=== PATIENT | male | born 1960 | race Caucasian/White ===

== ENCOUNTER → 2018-02-03 | Outpatient (CLI) | payer MEDICARE, MEDICAID ==
[~2018-02-03] MED LIST: ASPI-496 PO; ATOR20TA PO; DICL75TA2 PO; DULO60CA55 PO; HYDR25TA6 PO; LISI40TA PO; METO25TA91 PO; NITR0.4T28 SL
[2018-02-03 11:58] LABS: BASOPHILS % (AUTO) 1 % (0-1); EOSINOPHILS # (AUTO) 0.66 x10^3/uL (0-0.4); EOSINOPHILS % (AUTO) 6 % (1-7); LYMPHOCYTES # (AUTO) 2.85 x10^3/uL (1-3.4); LYMPHOCYTES % (AUTO) 25 % (22-44); MD NO; MEAN CORPUSCULAR HEMOGLOBIN 30.2 pg (27.5-34.5); MEAN CORPUSCULAR HGB CONC 33.5 g/dL (33.2-36.2); MEAN CORPUSCULAR VOLUME 90.3 fL (81-97); MEAN PLATELET VOLUME 8.4 fL (7.4-10.4); MONOCYTES # (AUTO) 0.56 x10^3/uL (0.2-0.8); MONOCYTES % (AUTO) 5 % (2-9); NEUTROPHILS # (AUTO) 7.12 x10^3/uL (1.8-6.8); NEUTROPHILS % (AUTO) 63 % (42-75); PLATELET COUNT 259 x10^3/uL (130-400); RED BLOOD COUNT 5.18 x10^6/uL (4.38-5.82); RED CELL DISTRIBUTION WIDTH 12.9 % (9.4-14.8)
[2018-02-03 12:02] LABS: MICROSCOPIC AUTO
[2018-02-03 12:04] LABS: CULTURE INDICATED? NO
[2018-02-03 12:07] LABS: PROTHROMBIN TIME 10.4 Seconds (9.6-11.5)
[2018-02-03 12:10] LABS: ALANINE AMINOTRANSFERASE 29 U/L (12-78); ALBUMIN 3.5 g/dL (3.4-5.0); ANION GAP 6 mmol/L (5-15); CHLORIDE 107 mmol/L (98-107)
[2018-02-03 12:13] LABS: ALKALINE PHOSPHATASE 93 U/L (45-117); BILIRUBIN,TOTAL 0.7 mg/dL (0.2-1.0); TOTAL PROTEIN 7.7 g/dL (6.4-8.2)
== END ==
LOC: STAR 10:27
PROVIDERS: ATTEND Neurological Surgery
DX: Z01.818 Encounter for other preprocedural examination (principal); M51.36 Other intervertebral disc degeneration, lumbar region; J44.9 Chronic obstructive pulmonary disease, unspecified
CPT/HCPCS: 36415; 71046; 72110; 80053; 81001; 85025; 85610; 85730; 93005

== ENCOUNTER 2018-02-14 17:32 | Inpatient (IN) | payer MEDICARE, MEDICAID ==
[~2018-02-14] VITALS: Ht 172.7 cm; Wt 158.9 kg
[~2018-02-14 17:32] MED LIST changes: +METH750T87 PO; +OXYC-302 PO
[2018-02-14 17:58] LABS: BASOPHILS # (AUTO) 0.12 x10^3/uL (0-0.1); BASOPHILS % (AUTO) 1 % (0-1); EOSINOPHILS # (AUTO) 0.11 x10^3/uL (0-0.4); EOSINOPHILS % (AUTO) 1 % (1-7); LYMPHOCYTES # (AUTO) 2.04 x10^3/uL (1-3.4); LYMPHOCYTES % (AUTO) 16 % (22-44); MD NO; MEAN CORPUSCULAR HEMOGLOBIN 30.4 pg (27.5-34.5); MEAN CORPUSCULAR HGB CONC 33.8 g/dL (33.2-36.2); MEAN CORPUSCULAR VOLUME 90.1 fL (81-97); MEAN PLATELET VOLUME 8.2 fL (7.4-10.4); MONOCYTES # (AUTO) 1.27 x10^3/uL (0.2-0.8); MONOCYTES % (AUTO) 10 % (2-9); NEUTROPHILS # (AUTO) 9.57 x10^3/uL (1.8-6.8); NEUTROPHILS % (AUTO) 73 % (42-75); PLATELET COUNT 208 x10^3/uL (130-400); RED CELL DISTRIBUTION WIDTH 12.9 % (9.4-14.8)
[2018-02-14] MEDS ORDERED: DIAZEPAM 5 MG/ML, 10ML VIAL IVPush ONE (18:00)
[2018-02-14] MEDS ORDERED: SODIUM CHLORIDE FLUSH 10ML SYR IVF ONE (18:00)
[2018-02-14] MEDS ORDERED: KETOROLAC 30 MG/1 ML IVPush ONE (18:00)
[2018-02-14] MEDS ORDERED: MORPHINE SULFATE 4 MG/ML, 1ML IVPush PRN (18:00)
[2018-02-14] MEDS ORDERED: MORPHINE SULFATE 4 MG/ML, 1ML ONE (18:06)
[2018-02-14] MEDS ORDERED: DIAZEPAM 5 MG TABLET ONE (18:07)
[2018-02-14] MEDS ORDERED: KETOROLAC 30 MG/1 ML ONE (18:07)
[2018-02-14 18:30] LABS: ANION GAP 8 mmol/L (5-15); CALCIUM 8.7 mg/dL (8.5-10.1); CHLORIDE 99 mmol/L (98-107); CREATININE 0.94 mg/dL (0.7-1.3)
[2018-02-14] MEDS ORDERED: METHOCARBAMOL 750 MG TABLET PO PRN (19:00)
[2018-02-14] MEDS ORDERED: hydrALAzine 20 MG/ML, 1ML IVPush PRN (19:00)
[2018-02-14] MEDS ORDERED: NITROGLYCERIN 0.4 MG BOTTLE (25 TABS) SL PRN (19:00)
[2018-02-14] MEDS ORDERED: ONDANSETRON 2MG/ML, 2ML IVPush PRN (19:00)
[2018-02-14 19:53] VITALS: BP 137/75
[2018-02-14] MEDS: ENOXAPARIN 40 MG/0.4 ML SQ SCH (21:03)
[2018-02-14] MEDS: ATORVASTATIN 20 MG TABLET PO SCH (21:03)
[2018-02-14] MEDS: DICLOFENAC SODIUM 75 MG TABLET.DR PO SCH (21:03)
[2018-02-14] MEDS: SODIUM CHLORIDE 0.9% 1,000 ML IV SCH (21:08)
[2018-02-15] MEDS: KETOROLAC 30 MG/1 ML IVPush SCH ×4 (00:06→18:14)
[2018-02-15 01:49] VITALS: BP 117/66
[2018-02-15] MEDS: SODIUM CHLORIDE 0.9% 1,000 ML IV SCH (05:30)
[2018-02-15 07:37] LABS: BASOPHILS # (AUTO) 0.05 x10^3/uL (0-0.1); BASOPHILS % (AUTO) 1 % (0-1); EOSINOPHILS # (AUTO) 0.24 x10^3/uL (0-0.4); EOSINOPHILS % (AUTO) 3 % (1-7); LYMPHOCYTES # (AUTO) 2.38 x10^3/uL (1-3.4); LYMPHOCYTES % (AUTO) 25 % (22-44); MD NO; MEAN CORPUSCULAR HEMOGLOBIN 29.9 pg (27.5-34.5); MEAN CORPUSCULAR HGB CONC 33.5 g/dL (33.2-36.2); MEAN CORPUSCULAR VOLUME 89.4 fL (81-97); MEAN PLATELET VOLUME 8.2 fL (7.4-10.4); MONOCYTES # (AUTO) 1.01 x10^3/uL (0.2-0.8); MONOCYTES % (AUTO) 11 % (2-9); NEUTROPHILS # (AUTO) 5.83 x10^3/uL (1.8-6.8); NEUTROPHILS % (AUTO) 61 % (42-75); PLATELET COUNT 189 x10^3/uL (130-400); RED BLOOD COUNT 4.25 x10^6/uL (4.38-5.82); RED CELL DISTRIBUTION WIDTH 12.6 % (9.4-14.8)
[2018-02-15 08:54] VITALS: BP 137/78
[2018-02-15] MEDS ORDERED: ASPIRIN 81 MG TABLET EC PO SCH (09:00)
[2018-02-15] MEDS: METOPROLOL SUCCINATE 25 MG TAB.ER.24H PO SCH (09:57)
[2018-02-15] MEDS: LISINOPRIL 20 MG TABLET PO SCH (09:57)
[2018-02-15] MEDS: DICLOFENAC SODIUM 75 MG TABLET.DR PO SCH ×2 (09:57→20:22)
[2018-02-15] MEDS: DULOXETINE 30 MG CAPSULE.DR PO SCH (09:57)
[2018-02-15] MEDS: SENNA/DOCUSATE TABLET PO SCH (09:57)
[2018-02-15] MEDS: HYDROCHLOROTHIAZIDE 25 MG TABLET PO SCH (09:57)
[2018-02-15] MEDS: OXYcodone/APAP 5/325MG TABLET PO PRN (09:58)
[2018-02-15] MEDS: POLYETHYLENE GLYCOL 17 GM PACKET PO SCH (09:58)
[2018-02-15 11:50] LABS: ALBUMIN 2.6 g/dL (3.4-5.0); ANION GAP 8 mmol/L (5-15); CALCIUM 8.6 mg/dL (8.5-10.1); CHLORIDE 103 mmol/L (98-107)
[2018-02-15 11:55] LABS: ALANINE AMINOTRANSFERASE 20 U/L (12-78); ALKALINE PHOSPHATASE 78 U/L (45-117); BILIRUBIN,TOTAL 1.3 mg/dL (0.2-1.0); CREATININE 0.81 mg/dL (0.7-1.3); TOTAL PROTEIN 6.2 g/dL (6.4-8.2)
[2018-02-15 13:51] VITALS: BP 126/72
[2018-02-15] MEDS: GABAPENTIN 100 MG CAPSULE PO SCH ×2 (16:39→20:22)
[2018-02-15] MEDS: DEXAMETHASONE 4 MG/ML, 1ML IV SCH ×2 (16:39→22:26)
[2018-02-15] MEDS: ENOXAPARIN 40 MG/0.4 ML SQ SCH (18:15)
[2018-02-15 19:27] LABS: MICROSCOPIC NOT IND
[2018-02-15 19:54] LABS: CULTURE INDICATED? NO
[2018-02-15 20:06] VITALS: BP 122/73
[2018-02-15] MEDS: ATORVASTATIN 20 MG TABLET PO SCH (20:22)
[2018-02-16 02:57] VITALS: BP 146/68
[2018-02-16] MEDS: DEXAMETHASONE 4 MG/ML, 1ML IV SCH (03:40)
[2018-02-16 05:29] LABS: BASOPHILS # (AUTO) 0.03 x10^3/uL (0-0.1); BASOPHILS % (AUTO) 0 % (0-1); EOSINOPHILS % (AUTO) 0 % (1-7); LYMPHOCYTES % (AUTO) 7 % (22-44); MD NO; MEAN CORPUSCULAR HEMOGLOBIN 30.6 pg (27.5-34.5); MEAN CORPUSCULAR HGB CONC 33.8 g/dL (33.2-36.2); MEAN CORPUSCULAR VOLUME 90.5 fL (81-97); MEAN PLATELET VOLUME 8.6 fL (7.4-10.4); MONOCYTES # (AUTO) 0.14 x10^3/uL (0.2-0.8); MONOCYTES % (AUTO) 1 % (2-9); NEUTROPHILS # (AUTO) 11.02 x10^3/uL (1.8-6.8); NEUTROPHILS % (AUTO) 92 % (42-75); PLATELET COUNT 227 x10^3/uL (130-400); RED BLOOD COUNT 4.56 x10^6/uL (4.38-5.82); RED CELL DISTRIBUTION WIDTH 12.7 % (9.4-14.8)
[2018-02-16 05:31] LABS: CHLORIDE 103 mmol/L (98-107)
[2018-02-16 05:37] LABS: ANION GAP 8 mmol/L (5-15); CALCIUM 9.3 mg/dL (8.5-10.1); CREATININE 0.82 mg/dL (0.7-1.3)
[2018-02-16 07:50] VITALS: BP 128/66
[2018-02-16] MEDS: DICLOFENAC SODIUM 75 MG TABLET.DR PO SCH ×2 (09:24→19:47)
[2018-02-16] MEDS: POLYETHYLENE GLYCOL 17 GM PACKET PO SCH (09:24)
[2018-02-16] MEDS: SENNA/DOCUSATE TABLET PO SCH (09:24)
[2018-02-16] MEDS: GABAPENTIN 300 MG CAPSULE PO SCH ×3 (09:25→19:47)
[2018-02-16] MEDS: HYDROCHLOROTHIAZIDE 25 MG TABLET PO SCH (09:25)
[2018-02-16] MEDS: DULOXETINE 30 MG CAPSULE.DR PO SCH (09:25)
[2018-02-16] MEDS: LISINOPRIL 20 MG TABLET PO SCH (09:25)
[2018-02-16] MEDS: METOPROLOL SUCCINATE 25 MG TAB.ER.24H PO SCH (09:25)
[2018-02-16 15:05] VITALS: BP 101/59
[2018-02-16] MEDS: OXYcodone/APAP 5/325MG TABLET PO PRN (18:06)
[2018-02-16] MEDS: ENOXAPARIN 40 MG/0.4 ML SQ SCH (18:06)
[2018-02-16] MEDS: ATORVASTATIN 20 MG TABLET PO SCH (19:47)
[2018-02-16 19:58] VITALS: BP 116/57
[2018-02-17 01:57] VITALS: BP 128/64
[2018-02-17 04:42] LABS: BASOPHILS # (AUTO) 0.02 x10^3/uL (0-0.1); BASOPHILS % (AUTO) 0 % (0-1); EOSINOPHILS % (AUTO) 0 % (1-7); LYMPHOCYTES # (AUTO) 2.01 x10^3/uL (1-3.4); LYMPHOCYTES % (AUTO) 12 % (22-44); MD NO; MEAN CORPUSCULAR HEMOGLOBIN 29.6 pg (27.5-34.5); MEAN CORPUSCULAR HGB CONC 33.1 g/dL (33.2-36.2); MEAN CORPUSCULAR VOLUME 89.6 fL (81-97); MEAN PLATELET VOLUME 8.5 fL (7.4-10.4); MONOCYTES # (AUTO) 0.77 x10^3/uL (0.2-0.8); MONOCYTES % (AUTO) 5 % (2-9); NEUTROPHILS # (AUTO) 13.54 x10^3/uL (1.8-6.8); NEUTROPHILS % (AUTO) 83 % (42-75); PLATELET COUNT 252 x10^3/uL (130-400); RED BLOOD COUNT 4.55 x10^6/uL (4.38-5.82); RED CELL DISTRIBUTION WIDTH 12.6 % (9.4-14.8)
[2018-02-17 04:50] LABS: ANION GAP 7 mmol/L (5-15); CALCIUM 8.8 mg/dL (8.5-10.1); CHLORIDE 105 mmol/L (98-107); CREATININE 0.84 mg/dL (0.7-1.3)
[2018-02-17 08:54] VITALS: BP 128/74
[2018-02-17] MEDS: POLYETHYLENE GLYCOL 17 GM PACKET PO SCH (10:38)
[2018-02-17] MEDS: SENNA/DOCUSATE TABLET PO SCH (10:38)
[2018-02-17] MEDS: DICLOFENAC SODIUM 75 MG TABLET.DR PO SCH (10:38)
[2018-02-17] MEDS: HYDROCHLOROTHIAZIDE 25 MG TABLET PO SCH (10:38)
[2018-02-17] MEDS: DULOXETINE 30 MG CAPSULE.DR PO SCH (10:39)
[2018-02-17] MEDS: METOPROLOL SUCCINATE 25 MG TAB.ER.24H PO SCH (10:39)
[2018-02-17] MEDS: LISINOPRIL 20 MG TABLET PO SCH (10:39)
[2018-02-17] MEDS: GABAPENTIN 300 MG CAPSULE PO SCH ×2 (10:39→16:13)
[2018-02-17 15:24] VITALS: BP 123/64
[2018-02-17] MEDS ORDERED: GABA300C10 PO (15:45)
[2018-02-17] MEDS: OXYcodone/APAP 5/325MG TABLET PO PRN (16:13)
== END 2018-02-17 18:49 | disposition home health service (06) | DRG 551 ==
LOC: ED 18:02 → EDIP 18:29 → 3NW 19:14
PROVIDERS: ADMIT Hospitalist; ATTEND Hospitalist
DX: M54.9 Dorsalgia, unspecified (principal); E43 Unspecified severe protein-calorie malnutrition; Z68.43 Body mass index [BMI] 50.0-59.9, adult; E66.01 Morbid (severe) obesity due to excess calories; D72.829 Elevated white blood cell count, unspecified; F17.210 Nicotine dependence, cigarettes, uncomplicated; I10 Essential (primary) hypertension; I25.10 Atherosclerotic heart disease of native coronary artery without angina pectoris; I48.91 Unspecified atrial fibrillation; M48.062 Spinal stenosis, lumbar region with neurogenic claudication; T38.0X5A Adverse effect of glucocorticoids and synthetic analogues, initial encounter; T44.7X5A Adverse effect of beta-adrenoreceptor antagonists, initial encounter; I25.2 Old myocardial infarction; Z91.81 History of falling; Z88.2 Allergy status to sulfonamides
CPT/HCPCS: 36415; 76700; 80048; 80053; 81003; 82040; 85025; 96374; 96375; J1100; J1650; J1885; J3360; J7030